=== PATIENT | female | born 1995 | race Caucasian/White ===

== ENCOUNTER 2018-03-24 11:13 | Emergency (ER) | payer OTHER ==
[~2018-03-24] VITALS: Ht 160 cm; Wt 58.1 kg
[2018-03-24] MEDS ORDERED: PEPCID20 MG (11:41)
== END 2018-03-24 12:36 | disposition home or self-care (01) ==
LOC: ER 11:13
DX: K21.9 Gastro-esophageal reflux disease without esophagitis (principal)